=== PATIENT | female | born 1955 | race Caucasian/White ===

== ENCOUNTER 2021-11-16 08:28 | Emergency (ER) | payer MEDICARE, OTHER ==
[~2021-11-16 08:28] MED LIST: ASPIRIN CHEWABL81 MG PO; MIRAPEX0.25 MG PO; SYNTHROID112 MCG PO
[2021-11-16 09:51] LABS: CORONAVIRUS 2019 SARS-COV-2 NEGATIVE (NEGATIVE); INFLUENZA A NAA NEGATIVE (NEGATIVE)
[2021-11-16] MEDS ORDERED: VENTOLIN HFA IN18 GM INH (10:27)
[2021-11-16] MEDS ORDERED: ZPAK PO (10:27)
== END 2021-11-16 11:02 | disposition home or self-care (01) ==
LOC: FER 08:28
PROVIDERS: Emergency Medicine
DX: R05.9 Cough, unspecified (principal); I10 Essential (primary) hypertension; E78.5 Hyperlipidemia, unspecified; I25.10 Atherosclerotic heart disease of native coronary artery without angina pectoris; Z88.2 Allergy status to sulfonamides; Z79.82 Long term (current) use of aspirin; Z79.899 Other long term (current) drug therapy; Z20.822 Contact with and (suspected) exposure to COVID-19
CPT/HCPCS: 94640; 94664; 99283; J2930; U0002